=== PATIENT | female | born 1980 | race Caucasian/White ===

== ENCOUNTER 2017-06-29 10:42 | Emergency (ER) | payer OTHER ==
[2017-06-29] MEDS ORDERED: AMOX500T PO (12:01)
--- NOTE | 2017-06-29 12:10 | PD ---
HPI Chief Complaint Tractions and leaking Date Seen: Jun 29, 2017 Time Seen: 11:15 Travel History International Travel<30 Days: No Contact w/Intl Traveler<30Days: No Known Affected Area: No History of Present Illness HPI This 36-year-old white female at 3637 weeks with a known breech fetus presents contractions. She is brendan irregularly and's and small contractions that tracing is reactive. She is scheduled for a for breech on 07/14/17 with tubal ligation Weeks Gestation: 36 Para: 3 : 4 History Obstetric History Obstetric History 3 vaginal deliveries Social History Alcohol Use: No Tobacco Use: No Substance Abuse: No Allergies-Medications (Allergen,Severity, Reaction): Coded Allergies: acetaminophen (Unverified Allergy, Mild, Shortness of Breath, 06/25/17) pineapple (Unverified Allergy, Mild, Shortness of Breath, 06/25/17) propoxyphene (Unverified Allergy, Mild, Shortness of Breath, 06/25/17) Home Meds Active Scripts Amoxicillin (Amoxicillin) 500 Mg Tab, 500 MG PO QID for Infection for 7 Days, # 28 TAB 0 Refills Prov:Teresa Byrnes CNM [facility] 06/29/17 Review of Systems General / Constitutional: No: Fever, Weight Gain, Chills, Other Eyes: No: Diploplia, Blurred Vision, Visual changes, Pain, Photophobia HENT: No: Headaches, Vertigo, Lightheadedness Cardiovascular: No: Irregular Rhythm, Chest Pain or Discomfort, Palpitations, Tachycardia, Syncope, Varicosities, Edema, Cyanosis Respiratory: No: Cough, Short of Breath, Other Gastrointestinal: No: Nausea, Vomiting, Diarrhea Genitourinary: No: Decreased Urinary Output, Oliguria Musculoskeletal: No: Limited ROM, Weakness, Cramping, Edema, Pain Skin: No Rash, No Itching, No Dryness, No Lumps, No Change in Pigmentation, No Change in Nails, No Alopecia, No Lesions Neurologic: No: Weakness, Dizziness, Syncope, Focal Abnormalities, Coordination Problem, Headache, Slurred Speech, Seizures Psychiatric: No: Depression, Suicidal Ideations, Homicidal Ideation Endocrine: No: Heat Intolerance, Cold Intolerance, Polydipsia, Polyuria, Other Physical Exam Narrative GENERAL: Well-nourished, well-developed patient. SKIN: Warm and dry. HEAD: Normocephalic and atraumatic. EYES: No scleral icterus. No injection or drainage. ENT: No nasal drainage noted. Mucous membranes pink. Airway patent. NECK: Supple, trachea midline. No JVD. CARDIOVASCULAR: Regular rate and rhythm without murmurs, gallops, or rubs. RESPIRATORY: Breath sounds equal bilaterally. No accessory muscle use. BREASTS: Bilateral exam showed no masses , no retractions, no nipple discharge. ABDOMEN/GI: Abdomen soft, non-tender, bowel sounds present, no rebound, no guarding Gravid to [-36] weeks size Fundal Height: [-36] GENITOURINARY: External Genitalia: intact and normal in appearance BUS glands: [-] Cervix: [-post] Dilatation: [fingertip-] Effacement: [-thick] Station: [-3] Presentation: [breech by US-] Membranes: [intac ] Uterine Contractions: [irreg-] FHT's: Category: [-1] Baseline: [-133] Reactive: [-yes] Variability: [-mod] Decels: [0-] EXTREMITIES: No cyanosis or edema. BACK: Nontender without obvious deformity. No CVA tenderness. NEUROLOGICAL: Awake and alert. Motor and sensory grossly within normal limits. Five out of 5 muscle strength in all muscle groups. Normal speech. Data Data Group B Strep: Positive Labs amnisure neg MDM Interpretation(s) Patient is a 36-year-old black female at 3637 weeks presents with irregular contractions. Patient is not a great help this time. She is breech fetus and is confirmed by ultrasound today. heart tones are reactive reactive and she is having like said the irregular small contractions. Cervix is fingertip thick and closed high presenting part out of the pelvis. Patient scheduled for 07/14 when she 39 weeks Plan Plan to discharge patient home to bedrest today increase Tylenol, heating pad or hot bath, increase her fluids for hydration. Follow-up with her OB provider Diagnosis Diagnosis: Primary Impression: Previous section complicating , antepartum condition or complication Additional Impressions: Uterine contractions during Breech presentation Disposition: DISCHARGE HOME Condition: Stable Rodney Hogue II, MD Jun 29, 2017 12:10
== END 2017-06-29 12:26 | disposition home or self-care (01) ==
LOC: HOBED 10:42
DX: O62.9 Abnormality of forces of labor, unspecified (principal); O34.219 Maternal care for unspecified type scar from previous cesarean delivery; O32.1XX0 Maternal care for breech presentation, not applicable or unspecified; Z3A.36 36 weeks gestation of pregnancy
CPT/HCPCS: 59025; 76815; 84112

== ENCOUNTER 2017-07-14 10:30 | Inpatient (IN) | payer OTHER ==
[2017-07-14] VITALS (8 sets, daily range): BP systolic 115–149; BP diastolic 63–80; PULSE 60–87; RESP 17–29; TEMP 97.5–97.7; O2SAT 98–100
[~2017-07-14 10:30] MED LIST: AMOX500T PO
[2017-07-14] MEDS ORDERED: LACTATED RINGER'S 1000 ML INJ 1,000 ML IV ONE (16:31)
--- NOTE | 2017-07-14 16:34 | HHI.HP ---
HPI Chief Complaint Rupture of membranes Date Seen: Jul 14, 2017 Time Seen: 15:20 Travel History International Travel<30 Days: No Contact w/Intl Traveler<30Days: No Known Affected Area: No History of Present Illness HPI 36-year-old who is at 39 weeks gestation comes in with rupture membranes. Patient was supposed to have a section earlier today due to breech presentation at term but was delayed due to the number of cases that had to go to the operating room here in labor delivery. She felt a gush of fluid approximate hour ago that appeared clear associated with some irregular contractions. Patient had a discussion that related to version earlier this that she preferred a possible natural change in position rather than an artificial external version. Weeks Gestation: 39 Para: 3 : 4 History Past Medical History Medical History: Denies Significant Hx Obstetric History Obstetric History SV D 3 Past Surgical History Narrative Surgical Cholecystectomy and dental procedures Family History Family History: Negative Social History Alcohol Use: No Tobacco Use: Yes (prior to 1 pack per day) Substance Abuse: No Allergies-Medications (Allergen,Severity, Reaction): Coded Allergies: acetaminophen (Unverified Allergy, Mild, Shortness of Breath, 07/01/17) pineapple (Unverified Allergy, Mild, Shortness of Breath, 07/01/17) propoxyphene (Unverified Allergy, Mild, Shortness of Breath, 07/01/17) Home Meds Active Scripts Amoxicillin (Amoxicillin) 500 Mg Tab, 500 MG PO QID for Infection for 7 Days, # 28 TAB 0 Refills Prov:Teresa Byrnes CNM [facility] 06/29/17 Review of Systems Except as stated in HPI: all other systems reviewed are Neg Physical Exam Narrative GENERAL: Well-nourished, well-developed patient. SKIN: Warm and dry. HEAD: Normocephalic and atraumatic. EYES: No scleral icterus. No injection or drainage. ENT: No nasal drainage noted. Mucous membranes pink. Airway patent. NECK: Supple, trachea midline. No JVD. CARDIOVASCULAR: Regular rate and rhythm without murmurs, gallops, or rubs. RESPIRATORY: Breath sounds equal bilaterally. No accessory muscle use. ABDOMEN/GI: Abdomen soft, non-tender, bowel sounds present, no rebound, no guarding Gravid to [39-] weeks size Fundal Height: [-] GENITOURINARY: External Genitalia: intact and normal in appearance, obvious rupture membranes with clear fluid BUS glands: [Normal-] Cervix: [-Posterior] Dilatation: [-3-4] Effacement: [-80] Station: [--3] Presentation: [-Breech] Membranes: [ruptured] Uterine Contractions: [Irregular] FHT's: Category: [1-] Baseline: [-140] Reactive: [Moderate-] Variability: [Moderate-] Decels: [-Absent] EXTREMITIES: No cyanosis or edema. BACK: Nontender without obvious deformity. No CVA tenderness. NEUROLOGICAL: Awake and alert. Motor and sensory grossly within normal limits. Five out of 5 muscle strength in all muscle groups. Normal speech. Caprini VTE Risk Assessment Caprini VTE Risk Assessment: No/Low Risk (score <= 1) Caprini Risk Assessment Model Point Value = 1 Point Value = 2 Point Value = 3 Point Value = 5 Age 41-60 Minor surgery BMI > 25 kg/m2 Swollen legs Varicose veins or History of unexplained or recurrent spontaneous Oral contraceptives or hormone replacement Sepsis (< 1 month) Serious lung disease, including pneumonia (< 1 month) Abnormal pulmonary function Acute myocardial infarction Congestive heart failure (< 1 month) History of inflammatory bowel disease Medical patient at bed rest Age 61-74 Arthroscopic surgery Major open surgery (> 45 min) Laparoscopic surgery (> 45 min) Malignancy Confined to bed (> 72 hours) Immobilizing plaster cast Central venous access Age >= 75 History of VTE Family history of VTE Factor V Leiden Prothrombin [id number] Lupus anticoagulant Anticardiolipin antibodies Elevated serum homocysteine Heparin-induced thrombocytopenia Other congenital or acquired thrombophilia Stroke (< 1 month) Elective arthroplasty Hip, pelvis, or leg fracture Acute spinal cord injury (< 1 month) Prophylaxis Regimen Total Risk Factor Score Risk Level Prophylaxis Regimen 0-1 Low Early ambulation 2 Moderate Order ONE of the following: *Sequential Compression Device (SCD) *Heparin 5000 units SQ BID 3-4 Higher Order ONE of the following medications: *Heparin 5000 units SQ TID *Enoxaparin/Lovenox 40 mg SQ daily (WT < 150 kg, CrCl > 30 mL/min) *Enoxaparin/Lovenox 30 mg SQ daily (WT < 150 kg, CrCl > 10-29 mL/min) *Enoxaparin/Lovenox 30 mg SQ BID (WT < 150 kg, CrCl > 30 mL/min) AND/OR *Sequential Compression Device (SCD) 5 or more Highest Order ONE of the following medications: *Heparin 5000 units SQ TID (Preferred with Epidurals) *Enoxaparin/Lovenox 40 mg SQ daily (WT < 150 kg, CrCl > 30 mL/min) *Enoxaparin/Lovenox 30 mg SQ daily (WT < 150 kg, CrCl > 10-29 mL/min) *Enoxaparin/Lovenox 30 mg SQ BID (WT < 150 kg, CrCl > 30 mL/min) AND *Sequential Compression Device (SCD) Data Data Vital Signs Reviewed: Yes Group B Strep: Negative Labs Bedside ultrasound was performed that shows the baby in a kiah kiah breech presentation Assessment/Plan Problem List: (1) 39 weeks gestation of ICD Codes: Z3A.39 - 39 weeks gestation of (2) Breech presentation ICD Codes: O32.1XX0 - Maternal care for breech presentation, not applicable or unspecified (3) Premature rupture of membranes ICD Codes: O42.90 - Premature rupture of membranes, unspecified as to length of time between rupture and onset of labor, unspecified weeks of gestation Plan: Plan primary section, as the patient is ruptured and the breech as well down in the pelvis I cannot recommend and a version at this time Patient understands the possibilities of infection bleeding injury to the bowel the bladder the ureters and blood transfusion Yanira Tierney MD Jul 14, 2017 16:34
[2017-07-14 16:46] LABS: BLOOD, URINE TRACE (NEG); COMMENT (UR) CULT NOT INDICATED; CULTURE IF INDICATED CULT NOT INDICATED; GLUCOSE,URINE NEG (NEG); KETONE, URINE 40 mg/dL (NEG); MUCUS URINE MANY /lpf (OCC); NITRITE,URINE NEG (NEG); PH, URINE 6.5 (5.0-8.5); SQUAMOUS EPITHELIAL CELL URINE 3 /hpf (0-5); URINE COLOR YELLOW (YELLW/STRAW)
[2017-07-14 16:47] LABS: AUTOMATED NEUTROPHIL # 6.9 TH/MM3 (1.8-7.7); BASOPHIL # 0.1 TH/MM3 (0-0.2); BASOPHIL % 0.6 % (0.0-2.0); EOSINOPHIL % 0.5 % (0.0-4.0); HEMATOCRIT 28.9 % (35.0-46.0); HEMO FLAGS DIFF FINAL; LYMPH % 22.9 % (9.0-44.0); LYMPHOCYTE # 2.3 TH/MM3 (1.0-4.8); MEAN CELL VOLUME 77.1 FL (80.0-100.0); MEAN CORPUSCULAR HEMOGLOBIN 25.2 PG (27.0-34.0); MEAN CORPUSCULAR HGB CONC 32.7 % (32.0-36.0); MONO % 7.4 % (0.0-8.0); NEUT % 68.6 % (16.0-70.0); PLATELET COUNT 265 TH/MM3 (150-450); RED BLOOD COUNT 3.75 MIL/MM3 (4.00-5.30); RED CELL DISTRIBUTION WIDTH 14.5 % (11.6-17.2)
[2017-07-14] MEDS ORDERED: LACTATED RINGER'S 1000 ML INJ 1,000 ML IV SCH ×2 (17:00→23:30)
[2017-07-14] MEDS ORDERED: EPIDURAL-DIPHENHYDRAMINE HCL 50 MG/ML VIAL IV PUSH PRN (17:15)
[2017-07-14] MEDS ORDERED: EPIDURAL-DIPHENHYDRAMINE HCL 50 MG CAP PO PRN (17:15)
[2017-07-14] MEDS ORDERED: EPIDURAL-NALOXONE HCL 0.4 MG/ML AMP IV PUSH PRN (17:15)
[2017-07-14] MEDS ORDERED: EPIDURAL-DO NOT ADMINISTER ANTICOAGULANTS PRN (17:15)
[2017-07-14] MEDS ORDERED: EPIDURAL-NO SYSTEMIC NARCOTICS PRN (17:15)
[2017-07-14] MEDS ORDERED: ceFAZolin 2 GM PREMIX 50 ML IV SCH (17:45)
[2017-07-14] MEDS ORDERED: CITRIC ACID-SODIUM CITRATE LIQ 30 ML UDC PO SCH (18:15)
[2017-07-14] MEDS ORDERED: ZOLPIDEM TARTRATE 5 MG TAB PO PRN (18:30)
[2017-07-14] MEDS ORDERED: ONDANSETRON HCL 4 MG/2 ML VIAL IV PUSH PRN (18:30)
[2017-07-14] MEDS ORDERED: SODIUM CHLORIDE 0.9% FLUSH 10 ML FLUSH IV FLUSH PRN (18:30)
[2017-07-14] MEDS ORDERED: OXYTOCIN 30 UNITS-500ML PREMIX 500 ML IV ONE (18:30)
--- NOTE | 2017-07-14 18:43 | PD.OP ---
Operative Report Date of Surgery: Jul 14, 2017 Preoperative Diagnosis: (1) Breech presentation (2) 39 weeks gestation of Postoperative Diagnosis: (1) Breech presentation (2) 39 weeks gestation of Procedure: Primary Low Transverse Section and Bilateral Tubal Ligation Anesthesia: General (Spinal inadequate) Surgeon: Yanira Tierney Hvac Field Service Technician(s): Christa Grover and Maribeth Knight Resident Surgeon: Alyssa Shannon R3 Operation and Findings: PREOPERATIVE DIAGNOSIS 1. 39 weeks gestation 2. Breech Presentation. POSTOPERATIVE DIAGNOSIS 1. 39 weeks gestation. 2. Breech Presentation. PROCEDURE Primary low transverse section and bilateral tubal ligation. SURGEON Dr. Yanira Tierney and Dr. Alyssa Shannon R3. FINDINGS A normal viable female weight 2670g and Apgars 7/9. COMPLICATIONS None COUNTS Correct ESTIMATED BLOOD LOSS 1000 cc FLUIDS Crystalloids CONDITION The patient tolerated the procedure well and went to the PACU for recovery in good condition. PROCEDURE IN DETAIL The patient was taken to the operating room, identified by name band and verbally. The time out was done and patient was prepped and draped in the usual sterile fashion for section. A Pfannenstiel incision was made then carried down to the fascia. The fascia was taken off the rectus muscle by blunt and sharp dissection. The rectus muscles were spread bluntly and the peritoneum entered under direct vision without difficulty. The incision was extended and a bladder blade was placed. A bladder flap was created in the usual fashion. Prior to hysterotomy, large venous sinuses were noted in the lower uterine segment. The uterus was incised transversely along the lower uterine segment. Once the uterine cavity was entered, clear fluid was noted. The hips were grasped and fundal pressure was applied. Each leg was reduced, one at a time, followed by each arm and finally the head was delivered without complication. Cord clamping was delayed for 45 seconds before the cord was doubly clamped and cut and the baby was handed to the baby nurse. The cord blood was obtained and the placenta was delivered manually. The uterus was curettaged with a wet lap. The uterine incision was repaired with #1 chromic in a running locking fashion in one layer. Attention was then turned to the bilateral tubal ligation. A Radha clamp was placed in the mid fallopian tube and elevated. Cautery was used to make a window in the avascular segment of the mesosalpinx. 2-0 Chromic was used and mid fallopian tube transection performed. This tubal ligation procedure was done in a bilateral fashion. Upon completion of tubal ligation, uterus was returned to the abdominal cavity. Once this had been accomplished, all incisions were carefully inspected. Hemostasis was achieved with several figure of eight sutures. The gutters were cleaned of blood and debris. The fascia was repaired with #1 PDS in a running fashion bilaterally. The subcuticular layer was repaired with plain gut. The skin was then repaired with a 3-0 Monocryl in a subcuticular fashion and Dermabond was applied. The wound was steriley dressed with a pressure dressing. The patient tolerated the procedure well and went to PACU for recovery in good condition. Alyssa Shannon MD, R3 Jul 14, 2017 18:43
[2017-07-14] MEDS ORDERED: OXYTOCIN 30 UNITS-500ML PREMIX 500 ML ONE (19:13)
[2017-07-14] MEDS ORDERED: KETOROLAC TROMETHAMINE 30 MG/ML (IVP) VIAL ONE (19:14)
[2017-07-14] MEDS ORDERED: ACETAMINOPHEN 1000 MG/100 ML 100 ML IV ONE (19:15)
[2017-07-14] MEDS ORDERED: SODIUM CHLORIDE 0.9% FLUSH 10 ML FLUSH IV FLUSH SCH (21:00)
[2017-07-15] VITALS (14 sets, daily range): BP systolic 116–141; BP diastolic 63–77; PULSE 71–95; RESP 16–20; TEMP 98–99.6; O2SAT 96
[2017-07-15] MEDS ORDERED: OXYTOCIN 30 UNITS-500ML PREMIX 500 ML IV PRN (04:30)
[2017-07-15 05:58] LABS: AUTOMATED NEUTROPHIL # 9.1 TH/MM3 (1.8-7.7); BASOPHIL % 0.2 % (0.0-2.0); EOSINOPHIL % 0.3 % (0.0-4.0); HEMATOCRIT 20.3 % (35.0-46.0); LYMPH % 16.7 % (9.0-44.0); MEAN CELL VOLUME 77.9 FL (80.0-100.0); MEAN CORPUSCULAR HEMOGLOBIN 25.7 PG (27.0-34.0); MEAN CORPUSCULAR HGB CONC 33.1 % (32.0-36.0); MONO % 8.9 % (0.0-8.0); NEUT % 73.9 % (16.0-70.0); PLATELET COUNT 201 TH/MM3 (150-450); RED CELL DISTRIBUTION WIDTH 14.3 % (11.6-17.2); WHITE BLOOD COUNT 12.3 TH/MM3 (4.0-11.0)
[2017-07-15 06:10] LABS: HEMO FLAGS DIFF FINAL
--- NOTE | 2017-07-15 07:11 | HHI.OB ---
Subjective Remarks POD day # 1. No acute issues overnight, vitals are stable, patient remains afebrile. Incision not draining. Decreasing lochia and pain. Patient is ambulating without difficulty and voiding independently. She is feeding the baby via breast/formula. She denies any nausea or vomiting and has a good appetite. Positive flatus/bowel movement. She denies any calf pain, chest pain , or shortness of breath. She denies any weakness or fatigue. She is bonding well with infant. (Alyssa Shannon MD, R3) Objective Vitals/I&O Vital Signs Date Time Temp Pulse Resp B/P (MAP) Pulse Ox O2 Delivery O2 Flow Rate FiO2 07/15/17 04:00 98.2 71 18 124/77 (93) 07/15/17 03:00 16 07/15/17 01:00 16 07/15/17 00:00 73 18 131/73 (92) 07/15/17 00:00 98.0 07/14/17 20:10 97.5 60 18 07/14/17 20:10 122/80 (94) 07/14/17 19:31 74 29 137/63 (87) 07/14/17 19:31 100 07/14/17 19:24 76 22 100 07/14/17 19:24 145/79 (101) 07/14/17 19:03 73 18 145/78 (100) 100 07/14/17 18:54 84 17 134/75 (94) 100 07/14/17 18:40 87 115/67 (83) 07/14/17 18:40 23 98 07/14/17 18:40 97.7 07/14/17 17:00 97.7 18 07/14/17 16:55 69 149/76 (100) (Alyssa Shannon MD, R3) Result Diagram: 07/15/17 0511 Objective Remarks GENERAL: Well-nourished, well-developed patient. CARDIOVASCULAR: Regular rate and rhythm without murmurs, gallops, or rubs. RESPIRATORY: Breath sounds equal bilaterally. No accessory muscle use. ABDOMEN/GI: Abdomen soft, non-tender, bowel sounds present. Incision: Clean, dry and intact. Fundus: Firm, non-tender at umbilicus. GENITOURINARY: Light to moderate bleeding. EXTREMITIES: No cyanosis or edema, non-tender, without signs of DVT. Medications and IVs Current Medications Medications (Trade) Dose Ordered Sig/Colton Route Start Time Stop Time Status Last Admin Lactated Ringer's 1,000 ml @ 150 mls/hr Q6H40M IV 07/14/17 17:00 07/14/17 17:00 Cefazolin Sodium/ Dextrose 50 ml @ 100 mls/hr CRITICAL CARE RN IV 07/14/17 17:45 07/18/17 17:44 07/14/17 19:07 (Bicitra Liq) 30 ml CRITICAL CARE RN PO 07/14/17 18:15 07/18/17 18:14 07/14/17 19:07 Lactated Ringer's 1,000 ml @ 100 mls/hr Q10H IV 07/14/17 23:30 07/15/17 19:29 07/15/17 00:33 Oxytocin 500 ml @ 100 mls/hr UNSCH X1 PRN IV 07/15/17 04:30 07/16/17 04:29 (NS Flush) 2 ml BID IV FLUSH 07/14/17 21:00 (NS Flush) 2 ml UNSCH PRN IV FLUSH 07/14/17 18:30 (Mylicon Chew) 80 mg QID PRN PO 07/14/17 18:30 (Motrin) 600 mg Q6H PRN PO 07/14/17 18:30 (Pari-Colace) 2 tab Q12H PRN PO 07/14/17 18:30 (Ambien) 5 mg HS PRN PO 07/14/17 18:30 (M-M-R Ii Inj) 0.5 ml ONCE ONCE SQ 07/15/17 16:00 07/15/17 16:01 (Boostrix Inj) 0.5 ml ONCE ONCE IM 07/15/17 16:00 07/15/17 16:01 (Zofran Inj) 4 mg Q6H PRN IV PUSH 07/14/17 18:30 07/14/17 21:09 (Roxicodone) 5 mg Q4H PRN PO 07/14/17 18:30 (Roxicodone) 10 mg Q6H PRN PO 07/14/17 18:30 Miscellaneous Information NO SYSTEMIC NARCOTICS TO BE GIVEN FO... UNSCH PRN .XX 07/14/17 17:15 07/15/17 17:14 (Narcan Inj) 0.4 mg UNSCH PRN IV PUSH 07/14/17 17:15 07/15/17 17:14 (Benadryl Inj) 25 mg Q6H PRN IV PUSH 07/14/17 17:15 07/15/17 17:14 07/14/17 21:09 (Benadryl) 50 mg Q6H PRN PO 07/14/17 17:15 07/15/17 17:14 Miscellaneous Information ALL NURSING DEPARTMENTS UNSCH PRN .XX 07/14/17 17:15 07/15/17 17:14 (Alyssa Shannon MD, R3) Assessment/Plan Problem List: (1) 39 weeks gestation of ICD Codes: Z3A.39 - 39 weeks gestation of (2) Delivery by section for breech presentation ICD Codes: O32.1XX0 - Maternal care for breech presentation, not applicable or unspecified Assessment and Plan 36 y/o female who is POD# 1 s/p primary for breech presentation. -Continue routine care. -H/H 6.7/20.3, patient asymptomatic. Will continue to monitor with repeat H/H at 1600. -Percocet and Motrin PRN pain. -Encouraged OOB. Advised pelvic rest for 6 wks. Will need a f/u appt. in 1 wk for incision check. -Re: ctrl, she is s/p bilateral tubal ligation. -Discharge home in 1-[address] Tierney (Alyssa Shannon MD, R3) Collaborating MD Comments Patient intraop with large venous sinuses along lower uterine segment leading to at least 1000cc blood loss at . Patient with post op anemia presently asymptomatic but will recheck later this afternoon. Care discussed with Dr Henriquez (Yanira Tierney MD) Alyssa Shannon MD, R3 Jul 15, 2017 07:11 Yanira Tierney MD Jul 15, 2017 09:47
[2017-07-15] MEDS: IBUPROFEN 600 MG TAB PO PRN ×2 (11:43→22:23)
[2017-07-15] MEDS: SIMETHICONE 80 MG CHEWABLE TAB PO PRN ×2 (12:11→22:29)
[2017-07-15] MEDS ORDERED: MEASLES, MUMPS, RUBELLA VACCINE 0.5 ML VIAL SQ ONE (16:00)
[2017-07-15] MEDS ORDERED: DIPHTH/TETANUS/ACEL PERTUSSIS (BOOSTER) 0.5 ML VIAL/PFS IM ONE (16:00)
[2017-07-15 18:02] LABS: REVIEW FLAG FINAL
[2017-07-15 18:04] LABS: HEMATOCRIT 19.7 % (35.0-46.0)
[2017-07-15] MEDS ORDERED: SODIUM CHLOR 0.9% 250 ML INJ 250 ML IV ONE (19:45)
[2017-07-15] MEDS: diphenhydrAMINE HCL 25 MG CAP PO PRN (22:30)
[2017-07-15] MEDS: ACETAMINOPHEN 325 MG TAB PO PRN (22:30)
[2017-07-16] VITALS (9 sets, daily range): BP systolic 122–142; BP diastolic 74–91; PULSE 63–71; RESP 16–18; TEMP 97.5–99.2; O2SAT 96
[2017-07-16] MEDS: ACETAMINOPHEN 325 MG TAB PO PRN (02:39)
[2017-07-16] MEDS: diphenhydrAMINE HCL 25 MG CAP PO PRN (02:39)
[2017-07-16] MEDS: IBUPROFEN 600 MG TAB PO PRN ×3 (05:57→17:48)
[2017-07-16] MEDS ORDERED: PNEUMOCOCCAL POLYVALENT INJ 25 MCG/0.5 ML SYR IM ONE (10:00)
[2017-07-16] MEDS: SIMETHICONE 80 MG CHEWABLE TAB PO PRN ×2 (10:22→22:22)
[2017-07-16] MEDS: DOCUSATE SODIUM 50 MG/SENNA 8.6 MG TAB PO PRN ×2 (10:22→17:55)
--- NOTE | 2017-07-16 11:19 | HHI.OB ---
Subjective Post Operative Day: 2 Remarks POD day # 2. No acute issues overnight, vitals are stable, patient remains afebrile. Incision CDI. Decreasing lochia and pain. She is ambulating and voiding without issues. She is feeding the baby via breast/formula. She denies any nausea or vomiting plans to eat well today. Positive flatus/bowel movement. She denies any calf pain, chest pain, or shortness of breath. She feels tired because she was up most of the night receiving blood and did not get much sleep. Baby was in the nursery this morning so that she could get some rest. Objective Vitals/I&O Vital Signs Date Time Temp Pulse Resp B/P (MAP) Pulse Ox O2 Delivery O2 Flow Rate FiO2 07/16/17 08:00 98.0 71 18 136/91 (106) 96 07/16/17 05:52 97.6 69 18 130/79 07/16/17 05:00 16 07/16/17 04:05 98.3 67 16 140/77 07/16/17 03:51 98.4 67 16 142/74 07/16/17 03:37 98.5 66 17 137/79 07/16/17 01:55 98.4 69 16 132/75 07/16/17 01:55 98.4 07/16/17 01:42 99.2 70 16 122/75 07/15/17 23:39 99.0 77 18 118/63 07/15/17 23:25 99.6 07/15/17 23:25 79 16 123/70 (87) 07/15/17 23:21 99.6 79 16 123/70 07/15/17 20:00 98.0 75 18 123/77 (92) 07/15/17 15:58 19 07/15/17 13:15 84 20 116/70 (85) 96 07/15/17 12:05 20 Intake & Output 07/16/17 07/16/17 07:00 19:00 Intake Total 1212 ml Balance 1212 ml Packed Cells 1200 ml Blood Product IV Normal Saline Flush 12 ml Result Diagram: 07/15/17 6373 Objective Remarks GENERAL: Well-nourished, well-developed patient. CARDIOVASCULAR: Regular rate and rhythm without murmurs, gallops, or rubs. RESPIRATORY: Breath sounds equal bilaterally. No accessory muscle use. ABDOMEN/GI: Abdomen soft, non-tender, bowel sounds present. Incision: Clean, dry and intact. Fundus: Firm, tender to palpation at umbilicus. GENITOURINARY: Light to moderate bleeding. EXTREMITIES: No cyanosis, some pedal edema, non-tender, without signs of DVT. Medications and IVs Current Medications Medications (Trade) Dose Ordered Sig/Colton Route Start Time Stop Time Status Last Admin Lactated Ringer's 1,000 ml @ 150 mls/hr Q6H40M IV 07/14/17 17:00 07/14/17 17:00 Cefazolin Sodium/ Dextrose 50 ml @ 100 mls/hr PRACTICE ASSISTANT IV 07/14/17 17:45 07/18/17 17:44 07/14/17 19:07 (Bicitra Liq) 30 ml PRACTICE ASSISTANT PO 07/14/17 18:15 07/18/17 18:14 07/14/17 19:07 (NS Flush) 2 ml BID IV FLUSH 07/14/17 21:00 (NS Flush) 2 ml UNSCH PRN IV FLUSH 07/14/17 18:30 (Mylicon Chew) 80 mg QID PRN PO 07/14/17 18:30 07/16/17 10:22 (Motrin) 600 mg Q6H PRN PO 07/14/17 18:30 07/16/17 10:22 (Pari-Colace) 2 tab Q12H PRN PO 07/14/17 18:30 07/16/17 10:22 (Ambien) 5 mg HS PRN PO 07/14/17 18:30 (Zofran Inj) 4 mg Q6H PRN IV PUSH 07/14/17 18:30 07/14/17 21:09 (Roxicodone) 5 mg Q4H PRN PO 07/14/17 18:30 07/16/17 10:23 (Roxicodone) 10 mg Q6H PRN PO 07/14/17 18:30 07/16/17 05:57 Sodium Chloride 250 ml @ 15 mls/hr ONCE ONCE IV 07/15/17 19:45 07/16/17 12:24 Assessment/Plan Problem List: (1) 39 weeks gestation of ICD Codes: Z3A.39 - 39 weeks gestation of (2) Delivery by section for breech presentation ICD Codes: O32.1XX0 - Maternal care for breech presentation, not applicable or unspecified Assessment and Plan 36 y/o female who is POD# 2 s/p primary for breech presentation. -Continue routine care. -H/H 6.7/20.3 on 07/15, patient was asymptomatic at the time. Repeat H/H at 1600 was 6.4/19.7, s/p 3 units of PRBCs. Will repeat H/H 2 hrs after blood transfusion -Percocet and Motrin PRN pain. -Encouraged OOB. Advised pelvic rest for 6 wks. Will need a f/u appt. in 1 wk for incision check. -Re: ctrl, she is s/p bilateral tubal ligation. -Discharge home in 1 day. maria victoria Hogue Discharge Planning Discharge home in 1 day Della Arteaga MD R2 Jul 16, 2017 11:19
[2017-07-17] MEDS: IBUPROFEN 600 MG TAB PO PRN ×2 (03:57→10:16)
[2017-07-17 05:58] LABS: HEMATOCRIT 25.4 % (35.0-46.0); REVIEW FLAG FINAL
--- NOTE | 2017-07-17 07:15 | HHI.OB ---
Subjective Post Operative Day: 3 Remarks No acute issues overnight, vitals are stable, patient remains afebrile. Incision CDI. Decreasing lochia but now experiencing burning pain. She is ambulating and voiding without issues. She is feeding the baby via breast/ formula. She is feeling nauseous and still having dizziness and she feels anxious about going home- we discussed that the nausea and dizziness may be associated with the opiates she had taken during her hospital stay. Positive flatus. Had a bowel movement yesterday which provided some relief. She denies any calf pain, chest pain, or shortness of breath. Objective Vitals/I&O Vital Signs Date Time Temp Pulse Resp B/P (MAP) Pulse Ox O2 Delivery O2 Flow Rate FiO2 07/16/17 22:00 97.5 07/16/17 22:00 63 16 136/83 (100) 07/16/17 08:00 98.0 71 18 136/91 (106) 96 Result Diagram: 07/17/17 0518 Objective Remarks GENERAL: Well-nourished, well-developed patient. CARDIOVASCULAR: Regular rate and rhythm without murmurs, gallops, or rubs. RESPIRATORY: Breath sounds equal bilaterally. No accessory muscle use. ABDOMEN/GI: Abdomen soft, non-tender, bowel sounds present. Incision: Clean, dry and intact. Fundus: Firm, tender to palpation below umbilicus. GENITOURINARY: Light to moderate bleeding. EXTREMITIES: No cyanosis, some pedal edema, non-tender, without signs of DVT. Medications and IVs Current Medications Medications (Trade) Dose Ordered Sig/Colton Route Start Time Stop Time Status Last Admin Lactated Ringer's 1,000 ml @ 150 mls/hr Q6H40M IV 07/14/17 17:00 07/14/17 17:00 Cefazolin Sodium/ Dextrose 50 ml @ 100 mls/hr [employer] IV 07/14/17 17:45 07/18/17 17:44 07/14/17 19:07 (Bicitra Liq) 30 ml [employer] PO 07/14/17 18:15 07/18/17 18:14 07/14/17 19:07 (NS Flush) 2 ml BID IV FLUSH 07/14/17 21:00 (NS Flush) 2 ml UNSCH PRN IV FLUSH 07/14/17 18:30 (Mylicon Chew) 80 mg QID PRN PO 07/14/17 18:30 07/16/17 22:22 (Motrin) 600 mg Q6H PRN PO 07/14/17 18:30 07/17/17 03:57 (Pari-Colace) 2 tab Q12H PRN PO 07/14/17 18:30 07/16/17 17:55 (Ambien) 5 mg HS PRN PO 07/14/17 18:30 (Zofran Inj) 4 mg Q6H PRN IV PUSH 07/14/17 18:30 07/14/17 21:09 (Roxicodone) 5 mg Q4H PRN PO 07/14/17 18:30 07/17/17 03:57 (Roxicodone) 10 mg Q6H PRN PO 07/14/17 18:30 07/16/17 05:57 (Ferrous Sulfate) 325 mg BID PO 07/17/17 09:00 Assessment/Plan Problem List: (1) 39 weeks gestation of ICD Codes: Z3A.39 - 39 weeks gestation of (2) Delivery by section for breech presentation ICD Codes: O32.1XX0 - Maternal care for breech presentation, not applicable or unspecified Assessment and Plan 36 y/o female who is POD# 3 s/p primary for breech presentation. -Continue routine care. -H/H was 8.8 yesterday. 8.6/25.4 this morning. Will need ferrous sulfate pills with a stool softener -Percocet and Motrin PRN pain. -Encouraged OOB. Advised pelvic rest for 6 wks. Will need a f/u appt. in 1 wk for incision check. -Re: ctrl, she is s/p bilateral tubal ligation. -Discharge home today maria victoria Currie Discharge Planning Discharge home today Della Arteaga MD R2 Jul 17, 2017 07:15
[2017-07-17] MEDS ORDERED: PERI PO ×2 (07:25→15:01)
[2017-07-17] MEDS ORDERED: ZOFR4TAB PO ×2 (07:25→15:01)
[2017-07-17] MEDS ORDERED: IBUP-232 PO ×2 (07:25→15:01)
[2017-07-17] MEDS ORDERED: OXYC-392 PO (07:25)
--- NOTE | 2017-07-17 07:25 | HHI.DCPOC ---
Discharge Care Plan Diagnosis: (1) Delivery by section for breech presentation Report Symptoms to Your Doctor -Temperature above 100.5 degrees -Redness, of incision or excessive or foul smelling drainage -Unusual pain or calf pain -Increased vaginal bleeding -Painful or difficulty urinating -Feelings of extreme sadness or anxiety after 2 weeks Goals to Promote Your Health * To prevent worsening of your condition and complications * To maintain your health at the optimal level Directions to Meet Your Goals Take your medications as prescribed Follow your dietary instruction Follow activity as directed Ensure plenty of rest for recovery Drink fluids for hydration Keep your appointments as scheduled Take your immunizations and boosters as scheduled If your symptoms worsen call your PCP, if no PCP go to Urgent Care Center or Emergency Room Smoking is Dangerous to Your Health. Avoid second hand smoke Call the 24-hour crisis hotline for domestic abuse at Della Arteaga MD R2 Jul 17, 2017 07:25
[2017-07-17] MEDS ORDERED: FERROUS SULFATE 325 MG (65 MG ELEMENTAL IRON) TAB PO SCH (09:00)
[2017-07-17] MEDS ORDERED: FERR325T20 PO ×2 (09:21→15:01)
== END 2017-07-17 15:17 | disposition home or self-care (01) | DRG 765 ==
LOC: H2EA 15:30 → H1EA 19:46
PROVIDERS: ADMIT Obstetrics & Gynecology Obstetrics; ATTEND Obstetrics & Gynecology Obstetrics
PROC: 10D00Z1 Extraction of Products of Conception, Low, Open Approach (ICD-10-PCS; principal; 2017-07-14)
PROC: 0UB70ZZ Excision of Bilateral Fallopian Tubes, Open Approach (ICD-10-PCS; 2017-07-14)
PROC: 30233N1 Transfusion of Nonautologous Red Blood Cells into Peripheral Vein, Percutaneous Approach (ICD-10-PCS; 2017-07-15)
DX: O42.02 Full-term premature rupture of membranes, onset of labor within 24 hours of rupture (principal); D62 Acute posthemorrhagic anemia; O32.1XX0 Maternal care for breech presentation, not applicable or unspecified; Z3A.39 39 weeks gestation of pregnancy; Z37.0 Single live birth; Z30.2 Encounter for sterilization; O99.02 Anemia complicating childbirth; Z87.891 Personal history of nicotine dependence
CPT/HCPCS: 36430; 80307; 81001; 85014; 85018; 85025; 86850; 86900; 86901; 86920; 88302; 90715; J0131; J0690; J1200; J1885; J2405; J2590; J7120; P9016

== ENCOUNTER 2017-08-09 09:02 | Emergency (ER) | payer OTHER ==
[~2017-08-09] VITALS: Ht 172.7 cm; Wt 68.0 kg
[~2017-08-09 09:02] MED LIST changes: -AMOX500T PO; +FERR325T20 PO; +IBUP-232 PO; +PERI PO; +ZOFR4TAB PO
[2017-08-09 09:05] VITALS: RESP 16; O2SAT 100
[2017-08-09 09:08] VITALS: BP 123/68; PULSE 89; RESP 22; TEMP 98; O2SAT 100
[2017-08-09] MEDS ORDERED: SODIUM CHLOR 0.9% 1000 ML INJ 1,000 ML IV SCH (09:11)
[2017-08-09] MEDS ORDERED: KETOROLAC TROMETHAMINE 30 MG/ML (IVP) VIAL IVP ONE (09:15)
[2017-08-09] MEDS ORDERED: SODIUM CHLORIDE 0.9% FLUSH 10 ML FLUSH IV FLUSH PRN (09:15)
[2017-08-09] MEDS ORDERED: ONDANSETRON HCL 4 MG/2 ML VIAL IVP ONE (09:15)
--- NOTE | 2017-08-09 09:16 | PD ---
HPI Chief Complaint: Pain: Acute or Chronic Time Seen by Provider: 09:11 Travel History International Travel<30 days: No Contact w/Intl Traveler<30days: No Traveled to known affect area: No History of Present Illness HPI 36-year-old female patient with history of previous cholecystectomy, 3 weeks ago, presents to the ER today with sudden onset of left flank pains that is a 10 out of 10 starting this morning. She is nauseous, vomiting, and is in severe pain with any kind of touch or movement. She denies any previous history of this issue. She states that her issues of been okay, she did not have significant pain until now. She denies any fevers, urinary symptoms, or other issues. Modifying Factors: None Associated Signs & Symptoms: Left flank pain with nausea and vomiting Risk Factors: None PFSH Past Medical History ?: Not Social History Alcohol Use: No Tobacco Use: Yes (prior to 1 pack per day) Allergies-Medications (Allergen,Severity, Reaction): Coded Allergies: acetaminophen (Unverified Allergy, Mild, Shortness of Breath, 08/09/17) pineapple (Unverified Allergy, Mild, Shortness of Breath, 07/29/17) propoxyphene (Unverified Allergy, Mild, Shortness of Breath, 07/29/17) Reported Meds & Prescriptions Reported Meds & Active Scripts Active No Active Prescriptions or Reported Medications Review of Systems Except as stated in HPI: all other systems reviewed are Neg Physical Exam Narrative GENERAL: Well-developed young female patient currently and moderate distress, crying, but awake and oriented 3. SKIN: Focused skin assessment warm/dry. HEAD: Atraumatic. Normocephalic. EYES: Pupils equal and round. No scleral icterus. No injection or drainage. ENT: No nasal bleeding or discharge. Mucous membranes pink and moist. NECK: Trachea midline. No JVD. CARDIOVASCULAR: Regular rate and rhythm. No murmur appreciated. RESPIRATORY: No accessory muscle use. Clear to auscultation. Breath sounds equal bilaterally. GASTROINTESTINAL: Abdomen soft, non-tender, nondistended. Hepatic and splenic margins not palpable. site appears clean, dry, intact without significant erythema. MUSCULOSKELETAL: No obvious deformities. No clubbing. No cyanosis. No edema. BACK: Left CVA tenderness. No rash. No point tenderness on palpation of the spine. NEUROLOGICAL: Awake and alert. No obvious cranial nerve deficits. Motor grossly within normal limits. Normal speech. PSYCHIATRIC: Appropriate mood and affect; insight and judgment normal. Data Data Last Documented VS Vital Signs Date Time Temp Pulse Resp B/P (MAP) Pulse Ox O2 Delivery O2 Flow Rate FiO2 08/09/17 10:30 72 16 117/83 (94) 100 Room Air 08/09/17 09:08 98.0 Orders Orders Complete Blood Count With Diff (08/09/17 09:11) Comprehensive Metabolic Panel (08/09/17 09:11) Lipase (08/09/17 09:11) Urinalysis - C+S If Indicated (08/09/17 09:11) Ct Abd/Pel W/O Iv Contrast (08/09/17 09:11) Iv Access Insert/Monitor (08/09/17 09:11) Ecg Monitoring (08/09/17 09:11) Oximetry (08/09/17 09:11) Ondansetron Inj (Zofran Inj) (08/09/17 09:15) Sodium Chlor 0.9% 1000 Ml Inj (Ns 1000 M (08/09/17 09:11) Sodium Chloride 0.9% Flush (Ns Flush) (08/09/17 09:15) Ketorolac Inj (Toradol Inj) (08/09/17 09:15) Hydromorphone Pf Inj (Dilaudid Pf Inj) (08/09/17 10:00) Urine Culture (08/09/17 09:40) Labs Laboratory Tests Test 08/09/17 09:00 08/09/17 09:40 White Blood Count 8.5 TH/MM3 Red Blood Count 4.49 MIL/MM3 Hemoglobin 11.7 GM/DL Hematocrit 35.4 % Mean Corpuscular Volume 78.9 FL Mean Corpuscular Hemoglobin 26.0 PG Mean Corpuscular Hemoglobin Concent 33.0 % Red Cell Distribution Width 17.8 % Platelet Count 323 TH/MM3 Mean Platelet Volume 7.7 FL Neutrophils (%) (Auto) 55.7 % Lymphocytes (%) (Auto) 31.5 % Monocytes (%) (Auto) 10.1 % Eosinophils (%) (Auto) 2.1 % Basophils (%) (Auto) 0.6 % Neutrophils # (Auto) 4.7 TH/MM3 Lymphocytes # (Auto) 2.7 TH/MM3 Monocytes # (Auto) 0.9 TH/MM3 Eosinophils # (Auto) 0.2 TH/MM3 Basophils # (Auto) 0.1 TH/MM3 CBC Comment DIFF FINAL Differential Comment Blood Urea Nitrogen 10 MG/DL Creatinine 0.89 MG/DL Random Glucose 99 MG/DL Total Protein 7.9 GM/DL Albumin 3.6 GM/DL Calcium Level 8.8 MG/DL Alkaline Phosphatase 109 U/L Aspartate Amino Transf (AST/SGOT) 20 U/L Alanine Aminotransferase (ALT/SGPT) 19 U/L Total Bilirubin 0.7 MG/DL Sodium Level 144 MEQ/L Potassium Level 2.8 MEQ/L Chloride Level 110 MEQ/L Carbon Dioxide Level 24.6 MEQ/L Anion Gap 9 MEQ/L Estimat Glomerular Filtration Rate 72 ML/MIN Lipase 100 U/L Urine Color YELLOW Urine Turbidity HAZY Urine pH 6.0 Urine Specific Merritt 1.026 Urine Protein 30 mg/dL Urine Glucose (UA) NEG mg/dL Urine Ketones NEG mg/dL Urine Occult Blood LARGE Urine Nitrite NEG Urine Bilirubin NEG Urine Urobilinogen 2.0 MG/DL Urine Leukocyte Esterase LARGE Urine RBC 136 /hpf Urine WBC 31 /hpf Urine Squamous Epithelial Cells 20 /hpf Urine Bacteria OCC /hpf Urine Hyaline Casts 1 /lpf Urine Mucus FEW /lpf Microscopic Urinalysis Comment CULTURE INDICATED MDM Medical Decision Making Medical Screen Exam Complete: Yes Emergency Medical Condition: Yes Medical Record Reviewed: Yes Interpretation(s) Laboratory Tests Test 08/09/17 09:00 08/09/17 09:40 Mean Corpuscular Volume 78.9 FL (80.0-100.0) Mean Corpuscular Hemoglobin 26.0 PG (27.0-34.0) Red Cell Distribution Width 17.8 % (11.6-17.2) Monocytes (%) (Auto) 10.1 % (0.0-8.0) Potassium Level 2.8 MEQ/L (3.5-5.1) Chloride Level 110 MEQ/L (98-107) Estimat Glomerular Filtration Rate 72 ML/MIN (>89) Urine Turbidity HAZY (CLEAR) Urine Protein 30 mg/dL (NEG-TRACE) Urine Occult Blood LARGE (NEG) Urine Leukocyte Esterase LARGE (NEG) Urine RBC 136 /hpf (0-3) Urine WBC 31 /hpf (0-5) Urine Bacteria OCC /hpf (NONE) Urine Mucus FEW /lpf (OCC) Last 24 hours Impressions Abdomen/Pelvis CT 08/09/17 0911 Signed Impressions: Service Date/Time: Wednesday, August 09, 2017 10:05 - CONCLUSION: Probable 4 mm stone at left UVJ. Prominent uterus Isai Guidry MD FACR Differential Diagnosis Renal colic versus pyelonephritis versus bowel perforation Narrative Course Lab work shows significant blood in the urine with white blood cells. CAT scan is showing a 4 mm stone. She was given Toradol and Dilaudid in the ER for pain and on reevaluation at 10:50 AM, is much more comfortable now. My plan would be to release her with follow-up to urology. She will need to strain her urine. Return for any worsening in pain, fevers, and as needed. The plan has been discussed with her and she states understanding. Diagnosis Primary Impression: Kidney stone on left side Med/Other Pt SpecificInfo: Prescription(s) given Scripts Tramadol (Tramadol) 50 Mg Tab 50 MG PO Q6H Y for PAIN, #20 TAB 0 Refills Prov: Susie Smith MD 08/09/17 Ibuprofen (Ibuprofen) 600 Mg Tab 600 MG PO Q6H Y for Pain/Inflammation, #30 TAB 0 Refills Prov: Susie Smith MD 08/09/17 Sulfamethoxazole-Trimethoprim (Bactrim DS) 800-160 Mg Tab 1 TAB PO BID for Infection, #14 TAB 0 Refills Prov: Susie Smith MD 08/09/17 Disposition: 01 DISCHARGE HOME Condition: Stable Susie Smith MD Aug 09, 2017 09:16
[2017-08-09 09:38] LABS: AUTOMATED NEUTROPHIL # 4.7 TH/MM3 (1.8-7.7); BASOPHIL # 0.1 TH/MM3 (0-0.2); BASOPHIL % 0.6 % (0.0-2.0); EOSINOPHIL # 0.2 TH/MM3 (0-0.4); EOSINOPHIL % 2.1 % (0.0-4.0); HEMATOCRIT 35.4 % (35.0-46.0); HEMOGLOBIN 11.7 GM/DL (11.6-15.3); LYMPH % 31.5 % (9.0-44.0); LYMPHOCYTE # 2.7 TH/MM3 (1.0-4.8); MEAN CELL VOLUME 78.9 FL (80.0-100.0); MEAN PLATELET VOLUME 7.7 FL (7.0-11.0); MONO % 10.1 % (0.0-8.0); MONOCYTE # 0.9 TH/MM3 (0-0.9); NEUT % 55.7 % (16.0-70.0); PLATELET COUNT 323 TH/MM3 (150-450); RED BLOOD COUNT 4.49 MIL/MM3 (4.00-5.30); RED CELL DISTRIBUTION WIDTH 17.8 % (11.6-17.2); WHITE BLOOD COUNT 8.5 TH/MM3 (4.0-11.0)
[2017-08-09 09:58] LABS: BACTERIA, URINE OCC /hpf; BILIRUBIN, URINE NEG (NEG); BLOOD, URINE LARGE (NEG); GLUCOSE,URINE NEG (NEG); HYALINE CAST, URINE 1 /lpf (RARE); KETONE, URINE NEG (NEG); MUCUS URINE FEW /lpf (OCC); NITRITE,URINE NEG (NEG); SQUAMOUS EPITHELIAL CELL URINE 20 /hpf (0-5); URINE COLOR YELLOW (YELLW/STRAW); URINE LEUKOCYTE ESTERASE LARGE (NEG)
[2017-08-09] MEDS: HYDROmorphone HCL PF 2 MG/ML VIAL IV PUSH ONE ×2 (10:00→10:37)
[2017-08-09 10:12] LABS: ALBUMIN 3.6 GM/DL (3.4-5.0); ALKALINE PHOSPHATASE 109 U/L (45-117); ALT (GPT) 19 U/L (10-53); AST (GOT) 20 U/L (15-37); BICARBONATE 24.6 MEQ/L (21.0-32.0); BLOOD UREA NITROGEN 10 MG/DL (7-18); CALCIUM 8.8 MG/DL (8.5-10.1); CHLORIDE 110 MEQ/L (98-107); CREATININE 0.89 MG/DL (0.50-1.00); GLOMERULAR FILTRATION RATE 72 ML/MIN (>89); GLUCOSE,RANDOM 99 MG/DL (74-106); LIPASE 100 U/L (73-393); SODIUM (NA) 144 MEQ/L (136-145); TOTAL BILIRUBIN ADULT 0.7 MG/DL (0.2-1.0); TOTAL PROTEIN 7.9 GM/DL (6.4-8.2)
--- NOTE | 2017-08-09 10:24 | RADRPT ---
EXAM DATE/TIME: 08/09/2017 10:05 [facility] COMPARISON: No previous studies available for comparison. INDICATIONS : Back and flank pain. ORAL CONTRAST: No oral contrast ingested. RADIATION DOSE: 8.48 CTDIvol (mGy) MEDICAL HISTORY : None SURGICAL HISTORY : Cholecystectomy. ENCOUNTER: Initial ACUITY: 1 day PAIN SCALE: 10/10 LOCATION: Bilateral flank TECHNIQUE: Volumetric scanning of the abdomen and pelvis was performed. Using automated exposure control and ad justment of the mA and/or kV according to patient size, radiation dose was kept as low as reasonably achievable to obtain optimal diagnostic quality images. DICOM format image data is available electro nically for review and comparison. FINDINGS: LOWER LUNGS: The visualized lower lungs are clear. LIVER: Homogeneous density without lesion. There is no dilation of the biliary tree. No calcified gallston es. SPLEEN: Normal size without lesion. PANCREAS: Within normal limits. KIDNEYS: Normal in size and shape. Mild prominence of the left ureter. ADRENAL GLANDS: Within normal limits. VASCULAR: There is no aortic aneurysm. BOWEL/MESENTERY: The stomach, small bowel, and colon demonstrate no acute abnormality. There is no free intraperitone al air or fluid. ABDOMINAL WALL: Within normal limits. RETROPERITONEUM: There is no lymphadenopathy. BLADDER: No wall thickening or mass. Probable 4 mm stone left UVJ REPRODUCTIVE: Prominent uterus. INGUINAL: There is no lymphadenopathy or hernia. MUSCULOSKELETAL: Within normal limits for patient age. CONCLUSION: Probable 4 mm stone at left UVJ. Prominent uterus Isai Guidry MD FACR on August 09, 2017 at 10:20 Board Certified Radiologist. This report was verified electronically.
[2017-08-09 10:30] VITALS: BP 117/83; PULSE 72; RESP 16; O2SAT 100
[2017-08-09] MEDS ORDERED: IBUP-232 PO (10:58)
[2017-08-09] MEDS ORDERED: BACT800T5 PO (10:58)
[2017-08-09] MEDS ORDERED: TRAM50TA PO (10:58)
[2017-08-09 11:08] VITALS: RESP 16
[2017-08-09] MEDS ORDERED: POTA1TAB4 PO (11:18)
[2017-08-09] MEDS ORDERED: POTASSIUM CHLORIDE 10 MEQ CONTROLLED RELEASE TAB PO ONE (11:30)
== END 2017-08-09 11:26 | disposition home or self-care (01) ==
LOC: NEPC 09:02
DX: N20.0 Calculus of kidney (principal)
CPT/HCPCS: 74176; 80053; 81001; 83690; 85025; 87086; 96361; 96374; 96375; 99285; J1170; J1885; J2405; J7030